=== PATIENT | female | born 1960 | race Caucasian/White ===

== ENCOUNTER → 2019-02-20 10:52 | Outpatient (CLI) | payer MEDICAID | END | disposition home or self-care (01) | LOC: D.RAD 10:52 | PROVIDERS: ATTEND Internal Medicine Gastroenterology | DX: R93.5 Abnormal findings on diagnostic imaging of other abdominal regions, including retroperitoneum (principal); R10.84 Generalized abdominal pain; K59.00 Constipation, unspecified ==

== ENCOUNTER → 2019-07-15 08:28 | Outpatient (CLI) | payer MEDICAID ==
[2019-07-15 10:34] LABS: ALBUMIN 3.3 g/dL (3.4-5.0); BILIRUBIN - DIRECT 0.08 mg/dL (0.00-0.30); BILIRUBIN - INDIRECT 0.2 mg/dL (0.00-1.00); BILIRUBIN - TOTAL 0.28 mg/dL (0.2-1.3)
== END | disposition home or self-care (01) ==
LOC: D.US 08:28
PROVIDERS: ATTEND Internal Medicine Gastroenterology
DX: K76.0 Fatty (change of) liver, not elsewhere classified (principal); K43.2 Incisional hernia without obstruction or gangrene

== ENCOUNTER → 2019-07-24 12:43 | Outpatient (CLI) | payer MEDICAID ==
[2019-07-24 12:57] LABS: HEMATOCRIT 43.9 % (36.0-48.0); HEMOGLOBIN 14.8 g/dL (12-16); MCH 30.6 pg (26.0-34.0); MCHC 33.7 g/dL (31.0-37.0); MCV 90.7 fL (80.0-100.0); MEAN PLATELET VOLUME 9.4 fL (7.4-10.4); PLATELET COUNT 247 10x3/uL (130-400); RBC 4.84 10x6/uL (4.00-5.40); RDW 12.4 % (11.5-14.5); WBC 7.3 10x3/uL (4.8-10.8)
[2019-07-24 14:36] LABS: BASOPHILS 1 % (0-2); EOSINOPHILS 4 % (0-7); LYMPHOCYTES 46 % (15-50); MONOCYTES 10 % (2-11); NEUTROPHILS 39 % (40-80); PLATELET ESTIMATE NORMAL
[2019-07-25 07:14] LABS: HEPATITIS C ANTIBODY 0.1 S/CO RAT (0.0-0.9)
== END | disposition home or self-care (01) ==
LOC: D.LAB 12:43
PROVIDERS: ATTEND Internal Medicine Gastroenterology
DX: R74.0 Nonspecific elevation of levels of transaminase and lactic acid dehydrogenase [LDH] (principal); R79.89 Other specified abnormal findings of blood chemistry

== ENCOUNTER → 2019-08-22 11:46 | Outpatient (CLI) | payer MEDICAID ==
[2019-08-23 14:09] LABS: ALPHA FETOPROTEIN -(TUMOR MRK) 4.1 ng/mL (0.0-8.3)
[2019-08-25 15:12] LABS: MITOCHONDRIAL ANTIBODY <20.0 Units (0.0-20.0); SMOOTH MUSCLE ABS (ACTIN) 14 Units (0-19)
[2019-08-26 15:12] LABS: ANA REFLEX - DIRECT Negative (Negative)
== END | disposition home or self-care (01) ==
LOC: D.LAB 11:46
PROVIDERS: ATTEND Internal Medicine Gastroenterology
DX: K76.0 Fatty (change of) liver, not elsewhere classified (principal)

== ENCOUNTER 2019-09-26 06:32 | Day surgery (SDC) | payer MEDICAID ==
[~2019-09-26] VITALS: Ht 160 cm; Wt 72.3 kg
[2019-09-26 06:56] LABS: BASOPHILS 0.5 % (0-2); EOSINOPHILS 5.1 % (0-7); HEMATOCRIT 43.7 % (36.0-48.0); HEMOGLOBIN 14.5 g/dL (12-16); IMMATURE GRANULOCYTES 0.1 % (0-5); LYMPHOCYTES 47.2 % (15-50); MCH 30.1 pg (26.0-34.0); MCHC 33.2 g/dL (31.0-37.0); MCV 90.9 fL (80.0-100.0); MEAN PLATELET VOLUME 9.4 fL (7.4-10.4); MONOCYTES 8.5 % (2-11); NEUTROPHILS 38.6 % (40-80); PLATELET COUNT 272 10x3/uL (130-400); RBC 4.81 10x6/uL (4.00-5.40); RDW 12.3 % (11.5-14.5); WBC 8.3 10x3/uL (4.8-10.8)
[2019-09-26 07:05] LABS: ANION GAP 7.4 mmol/L (8-16); CALCIUM 8.9 mg/dL (8.5-10.1); CARBON DIOXIDE 32.4 mmol/L (21.0-32.0); POTASSIUM - SERUM 3.8 mmol/L (3.5-5.1)
[2019-09-26 07:11] LABS: APTT 29.3 SECONDS (22.8-39.4); INR 0.99 (0.85-1.17); PROTIME 13.1 SECONDS (11.6-15.0)
[2019-09-26] MEDS ORDERED: CYMBALTA60 MG PO (08:47)
[2019-09-26] MEDS ORDERED: GLUCOPHAGE500 MG PO (08:47)
[2019-09-26] MEDS ORDERED: HYDROCODON-ACE1 EA10 PO (08:48)
[2019-09-26] MEDS ORDERED: XANAX XR 1 MG TA1 MG PO (08:49)
[2019-09-26] MEDS ORDERED: PROTONIX40 MG PO (08:49)
[2019-09-26] MEDS ORDERED: K-DUR20 MEQ PO (08:50)
[2019-09-26] MEDS ORDERED: METOPROLOL TART50 MG PO (08:50)
[2019-09-26 08:52] VITALS: Ht 160 cm; Wt 72.3 kg
--- NOTE | 2019-09-26 14:10 | NUR ---
LEFT HAND PIV DC'D WITH TIP INTACT. PATIENT DRESSING IN PERSONAL CLOTHING. DISCHARGE INSTRUCTIONS REVIEWED WITH PATIENT AND SPOUSE
== END 2019-09-26 14:20 | disposition home or self-care (01) ==
LOC: D.SP 06:32 → D.CT 09:00 → D.SP 14:20
PROVIDERS: Radiology Diagnostic Radiology; ATTEND Internal Medicine Gastroenterology
DX: K76.0 Fatty (change of) liver, not elsewhere classified (principal); R74.8 Abnormal levels of other serum enzymes; K59.09 Other constipation; K57.30 Diverticulosis of large intestine without perforation or abscess without bleeding; Z86.010 Personal history of colon polyps; R11.2 Nausea with vomiting, unspecified; R13.10 Dysphagia, unspecified